=== PATIENT | female | born 1995 | race African-American/Black ===

== ENCOUNTER 2016-04-22 18:55 | Emergency (ER) | payer OTHER ==
[~2016-04-22] VITALS: Ht 165.1 cm; Wt 81.6 kg
[~2016-04-22 18:55] MED LIST: CYCL10TA2 PO; FAMO-63 PO; ONDA4TAB7 PO; VENTOLIN HFA18 GM INH
[2016-04-22] MEDS ORDERED: ACETAMINOPHEN 325 MG TABLET. PO ONE (19:30)
[2016-04-22] MEDS ORDERED: IV NORMAL SALINE 1000ML BAG 1,000 ML IV ONE ×2 (19:30→21:00)
[2016-04-22 19:34] LABS: NEG OBC UR NEG; POS OBC UR POS
[2016-04-22 19:38] LABS: BILIRUBIN,URINE SMALL (NEG); GLUCOSE,URINE NEGATIVE (NEG); NITRITE,URINE NEGATIVE (NEG)
[2016-04-22 19:47] LABS: BACTERIA,URINE FEW /HPF (0-FEW); PROTEIN,URINE NEGATIVE (NEG-TRACE); RBC,URINE 0 /HPF (0-2)
[2016-04-22 19:48] LABS: SQUAMOUS EPITHELIAL CELL,UR MOD /LPF
[2016-04-22 20:09] LABS: BASO % 1 % (0-3); EOS % 1 % (0-3); HEMATOCRIT 37.5 % (36.0-47.0); HEMOGLOBIN 12.3 g/dL (12.0-15.5); LYMPH # 1.3 x10^3/uL (1.0-4.8); LYMPH % 26 % (24-48); MEAN CORPUSCULAR HEMOGLOBIN 28 pg (25-35); MEAN CORPUSCULAR HGB CONC 33 g/dL (31-37); MEAN CORPUSCULAR VOLUME 86 fL (79-100); MONO % 9 % (0-9); NEUT % 63 % (31-73); PLATELET COUNT 195 x10^3/uL (140-400); RED BLOOD COUNT 4.35 x10^6/uL (3.50-5.40); RED CELL DISTRIBUTION WIDTH 15.7 % (11.5-14.5); WHITE BLOOD COUNT 4.9 x10^3/uL (4.0-11.0)
[2016-04-22 20:27] LABS: CALCIUM 8.4 mg/dL (8.5-10.1); GFR 83.1; POTASSIUM 3.5 mmol/L (3.5-5.1)
[2016-04-22] MEDS ORDERED: CONTRAST GIVEN MC PRN (20:30)
[2016-04-22] MEDS ORDERED: IOHEXOL 300 MG/ML 100ML VIAL. IV ONE (20:30)
--- NOTE | 2016-04-22 21:32 | PHYS DOC ---
Past Medical History Past Medical History: Asthma Past Surgical History: No Surgical History Additional Past Surgical Histo: Tumor removed from posterior R)ear. Alcohol Use: None Drug Use: None Adult General Chief Complaint Chief Complaint: HEADACHE HPI HPI 21-year-old female presenting the emergency department today with a fever and headache since 15 April. She has been taking acetaminophen as needed for pain. Her headache is sharp frontal moderate nonradiating and not associated with neck stiffness (I clarified with the patient after reading the nursing notes. She states "her neck has not been stiff". She denies abdominal pain nausea vomiting chest pain shortness of breath. She denies cough congestion. She denies vision changes. She endorses dysuria with mild polyuria. She denies diarrhea. Review of Systems Review of Systems ROS negative for chest pain shortness of breath cough she denies runny nose polyuria dysuria. All other review of systems is negative unless otherwise noted in history of present illness. Current Medications Current Medications Current Medications Medications (Trade) Dose Ordered Sig/Josseline Start Time Stop Time Status Last Admin Dose Admin Acetaminophen (Tylenol) 650 mg 1X ONCE 04/22/16 19:30 04/22/16 19:31 DC 04/22/16 19:39 650 MG Info 1 each 1 each PRN DAILY PRN 04/22/16 20:30 04/23/16 01:11 DC Iohexol (Omnipaque 300 Mg/ml) 100 ml 1X ONCE 04/22/16 20:30 04/22/16 20:31 DC 04/22/16 21:02 70 ML Sodium Chloride (Iv Sodium Chloride 0.9% 1000ml Bag) 1,000 ml @ 1,000 mls/hr 1X ONCE 04/22/16 21:00 04/22/16 21:59 DC 04/22/16 22:22 1,000 MLS/HR Sodium Chloride (NORMAL SALINE FLUSH for STERILE FIELD) 10 ml STK-MED ONCE 04/22/16 22:57 04/22/16 22:58 DC Allergies Allergies Allergies Coded Allergies Type Severity Reaction Last Updated Verified venom-honey bee Allergy Severe Throat swells-Anaphalysis 01/21/15 Yes Physical Exam Physical Exam Constitutional: Well developed, well nourished, no acute distress, non-toxic appearance. HENT: Normocephalic, atraumatic, bilateral external ears normal, oropharynx moist, no oral exudates, nose normal. Eyes: PERRLA, EOMI, conjunctiva normal, no discharge. [] Neck: Normal range of motion, no tenderness, supple, no stridor. Negative Brudzinski sign. Negative Kernig sign. Cardiovascular:Heart rate regular rhythm, no murmur [] Lungs & Thorax: Bilateral breath sounds clear to auscultation Abdomen: Bowel sounds normal, soft, no tenderness, no masses, no pulsatile masses. [] Skin: Warm, dry, no erythema, no rash. Back: No tenderness, no CVA tenderness. [] Extremities: No tenderness, no cyanosis, no clubbing, ROM intact, no edema. No petechial rash. Neurologic: Alert and oriented X 3, normal motor function, normal sensory function, no focal deficits noted. Psychologic: Affect normal, judgement normal, mood normal. [] Current Patient Data Vital Signs Vital Signs Date Time Temp Pulse Resp B/P Pulse Ox O2 Delivery O2 Flow Rate FiO2 04/23/16 01:00 99.8 99.8 04/23/16 00:30 87 98/52 98 Room Air 04/22/16 19:04 15 Lab Values Laboratory Tests Test 04/22/16 19:15 04/22/16 19:23 04/22/16 20:00 Group A Streptococcus Rapid Negative (NEGATIVE) Urine Collection Type Unknown Urine Color Sofía Urine Clarity Cloudy Urine pH 6.0 Urine Specific Rogers >=1.030 Urine Protein Negativemg/dL (NEG-TRACE) Urine Glucose (UA) Negativemg/dL (NEG) Urine Ketones (Stick) Tracemg/dL (NEG) Urine Blood Negative (NEG) Urine Nitrite Negative (NEG) Urine Bilirubin Small (NEG) Urine Urobilinogen Dipstick 1.0mg/dL (0.2 mg/dL) Urine Leukocyte Esterase Trace (NEG) Urine RBC 0/HPF (0-2) Urine WBC 1-4/HPF (0-4) Urine Squamous Epithelial Cells Mod/LPF Urine Bacteria Few/HPF (0-FEW) Urine Mucus Marked/LPF Urine Test Negative (NEG) White Blood Count 4.9x10^3/uL (4.0-11.0) Red Blood Count 4.35x10^6/uL (3.50-5.40) Hemoglobin 12.3g/dL (12.0-15.5) Hematocrit 37.5% (36.0-47.0) Mean Corpuscular Volume 86fL (79-100) Mean Corpuscular Hemoglobin 28pg (25-35) Mean Corpuscular Hemoglobin Concent 33g/dL (31-37) Red Cell Distribution Width 15.7% (11.5-14.5) H Platelet Count 195x10^3/uL (140-400) Neutrophils (%) (Auto) 63% (31-73) Lymphocytes (%) (Auto) 26% (24-48) Monocytes (%) (Auto) 9% (0-9) Eosinophils (%) (Auto) 1% (0-3) Basophils (%) (Auto) 1% (0-3) Neutrophils # (Auto) 3.1x10^3uL (1.8-7.7) Lymphocytes # (Auto) 1.3x10^3/uL (1.0-4.8) Monocytes # (Auto) 0.4x10^3/uL (0.0-1.1) Eosinophils # (Auto) 0.1x10^3/uL (0.0-0.7) Basophils # (Auto) 0.0x10^3/uL (0.0-0.2) Sodium Level 141mmol/L (136-145) Potassium Level 3.5mmol/L (3.5-5.1) Chloride Level 105mmol/L (98-107) Carbon Dioxide Level 26mmol/L (21-32) Anion Gap 10 (6-14) Blood Urea Nitrogen 15mg/dL (7-20) Creatinine 1.0mg/dL (0.6-1.0) Estimated GFR (Cockcroft-Gault) 83.1 Glucose Level 110mg/dL (70-99) H Calcium Level 8.4mg/dL (8.5-10.1) L Laboratory Tests 04/22/16 20:00 Laboratory Tests 04/22/16 20:00 EKG EKG [] Radiology/Procedures Radiology/Procedures [] Course & Med Decision Making Course & Med Decision Making Pertinent Labs and Imaging studies reviewed. (See chart for details) 21-year-old female presenting to the emergency department with headache and fever. No evidence of strep throat. Unable to find any other sources of infection. Urinalysis not entirely suggestive of infection. Vital signs showed tachycardia with fever. Patient was well-appearing in the examination room and resting comfortably. She did not have any neck stiffness on my evaluation she was able to touch her chin to her chest into her shoulders bilaterally without any difficulty. Negative Kernig sign and Babinski sign. Given the lack of source of infection we pursued evaluating her for possible viral meningitis. Head CT NEG for acute pathology. Lumbar puncture attempted approximately 4 attempts. Unfortunately were unable to obtain CSF. I explained to the patient the options of medical therapy at this point which included admission to the hospital, IV antibiotics, lumbar puncture under fluoroscopy or discharge. After long discussion about risks and benefits. Given the patient's clinical manifestations and physical exam and workup thus far we collectively decided that we would discharge the patient with the diagnosis of presumptive viral meningitis. The patient was nontoxic appearance. She had no petechiae in her upper or lower extremities. She did not have neck stiffness when I evaluated her. She was then subsequent discharged home to follow up with her primary care physician. I also explained to her that if she at any point changed her mind or felt worse she can otherwise come back for IV antibiotics and admission for fluoroscopic lumbar puncture. Dragon Disclaimer Dragon Disclaimer This electronic medical record was generated, in whole or in part, using a voice recognition dictation system. Departure Departure Impression: Primary Impression: Headache Additional Impression: Fever Disposition: 01 HOME, SELF-CARE Condition: STABLE Referrals: NO PCP (PCP) JUDITH QUAN MD Patient Instructions: General Headache Without Cause Additional Instructions: Thank you for allowing us to participate in your care today. Followup with your primary care physician in 3 days if your symptoms do not improve. If you do not have a primary care provider you can ask for a list of our primary care providers. Return to the emergency department you have any new or concerning findings. This should be evaluated by the primary care physician and any necessary consulting services for continued management within a few days after discharge. Return to emergency room if you have any new or concerning symptoms including but not limited to fever, chills, nausea, vomiting, intractable pain, any new rashes, chest pain, shortness of air, uncontrolled bleeding, difficulty breathing, and/or vision loss. You may have been prescribed medication that can change in your level of thinking and ability to operate machinery. These medications include hydrocodone and Ativan. Also, Benadryl has been known to do this as well. Be sure to check with your pharmacist and ask if the medications you've prescribed can affect your level of consciousness. I recommend not operating heavy machinery or driving while on medication such as these. Scripts Hydrocodone Bit/Acetaminophen (Hydrocodone-Apap 5-325 )1 Each Tablet1 Tab PO PRN Q6HRS PRN PAIN #15 TAB Be careful as this medication may cause you to be drowsy or tired. Do not drive on this medication. Prov:LEXY HUNTER MD 04/23/16 Lumbar Puncture Lumbar Indication: Suspected meningitis Consent: Consent was obtained Procedure: The patient was placed in the upright position and the appropriate landmarks were identified. The area was prepped and draped in the usual sterile fashion. Anesthesia was obtained using 1% lidocaine. A spinal needle was inserted at the L4/L5. Unfortunately CSF was unable to be obtained after approximately 30 minutes of attempted lumbar puncture. A sterile dressing was placed over the site and the patient was placed in the supine position. The patient tolerated the procedure well. Complications: Unable to obtain CSF. Problem Qualifiers LEXY HUNTER MD Apr 22, 2016 21:32
--- NOTE | 2016-04-22 21:41 | RAD ---
PROCEDURE CT head with and without contrast. HISTORY Headache and fever. Concern for sinusitis or potentially intracranial abscess. TECHNIQUE Noncontrast CT head was obtained. Post-contrast imaging was performed after 70 milliliters of intravenous Omnipaque 300 was injected. Coronal reformats are provided. One or more of the following individualized dose reduction techniques were utilized for this exam: 1. Automated exposure control. 2. Adjustment of the mA and/or kV according to patient's size. 3. Use of iterative reconstruction technique. COMPARISON None. FINDINGS The ventricles are normal in size and configuration. There is no intracranial hemorrhage or extra-axial fluid collection. There is no mass effect or midline shift. Malagon-white differentiation is preserved. There is no depressed skull fracture. There is minimal right maxillary mucosal thickening. The included paranasal sinuses and mastoid air cells otherwise are clear. There is no pathologic enhancement. CT, even with and without contrast, is not sensitive for dural enhancement or subtle findings of intracranial infection. Consider lumbar puncture. If further imaging is warranted, consider MRI brain with and without contrast. IMPRESSION No acute intracranial findings. There is minimal left maxillary sinus mucosal thickening. Electronically signed by: Jean Claude Hernández MD (Apr 22, 2016 21:40:06)
[2016-04-22] MEDS ORDERED: 0.9 % SOD CHL for STERILE FIELD 10 ML DISP.SYRIN. ONE (22:57)
[2016-04-23 00:30] VITALS: BP 98/52
[2016-04-23] MEDS ORDERED: HYDR-2666 PO (00:55)
[2016-04-23 07:34] LABS: NEGATIVE OBC STREP NEG; POSITIVE OBC STREP POS
--- NOTE | 2016-04-23 07:51 | RAD ---
Indication: Fever for 2 days. Technique: Upright portable chest radiograph was obtained. No comparison is available. Findings: The lungs are clear. The cardiopulmonary silhouette is within normal limits. The bony structures are intact. Impression: No active pulmonary disease.
== END 2016-04-23 01:11 | disposition home or self-care (01) ==
LOC: ER 18:55
DX: R51 Headache (principal); R50.9 Fever, unspecified; R30.0 Dysuria; J45.909 Unspecified asthma, uncomplicated; Z91.038 Other insect allergy status
CPT/HCPCS: 36415; 62272; 70470; 71010; 80048; 81001; 81025; 85027; 87070; 87086; 87880; 96360; 96361; 99285; J7030; Q9967

== ENCOUNTER 2016-09-30 12:54 | Emergency (ER) | payer OTHER ==
[~2016-09-30] VITALS: Ht 165.1 cm; Wt 81.6 kg
[~2016-09-30 12:54] MED LIST changes: +HYDR-2758 PO
[2016-09-30 13:56] VITALS: BP 121/72
--- NOTE | 2016-09-30 14:12 | PHYS DOC ---
Past Medical History Past Medical History: Asthma Past Surgical History: No Surgical History Additional Past Surgical Histo: Tumor removed from posterior R)ear. Alcohol Use: None Drug Use: None Adult General Chief Complaint Chief Complaint: SORE THROAT HPI HPI Patient is a 21 year old female in the emergency department stating that she's a sore throat for the last 2 days. She states she just started as a tingling- type sore throat. She states that it is hard to swallow and difficulty to talk. She states she's had a fever up to 102. She denies any cough or congestion. She states that she either usually has tonsillitis or strep throat. Patient is unsure when the last time she was on antibiotics. She denies any further symptoms. She states that she did not take any Tylenol or ibuprofen when she was running a fever. Current time she's afebrile Review of Systems Review of Systems Constitutional: Denies fever or chills [] Eyes: Denies change in visual acuity, redness, or eye pain [] HENT: Denies nasal congestion C/o sore throat [] Respiratory: Denies cough or shortness of breath [] Cardiovascular: No additional information not addressed in HPI [] GI: Denies abdominal pain, nausea, vomiting, bloody stools or diarrhea [] : Denies dysuria or hematuria [] Musculoskeletal: Denies back pain or joint pain [] Integument: Denies rash or skin lesions [] Neurologic: Denies headache, focal weakness or sensory changes [] Endocrine: Denies polyuria or polydipsia [] Allergies Allergies Allergies Coded Allergies Type Severity Reaction Last Updated Verified venom-honey bee Allergy Severe Throat swells-Anaphalysis 01/21/15 Yes Physical Exam Physical Exam Constitutional: Well developed, well nourished, no acute distress, non-toxic appearance. [] HENT: Normocephalic, atraumatic, bilateral external ears normal, oropharynx moist, no oral exudates, nose normal. Bilateral tympanic membranes appear to be normal. Throat with redness noted no exudate noted no erythematous noted. Patient was noted to have left anterior cervical adenopathy. Eyes: PERRLA, EOMI, conjunctiva normal, no discharge. [] Neck: Normal range of motion, no tenderness, supple, no stridor. [] Cardiovascular:Heart rate regular rhythm, no murmur [] Lungs & Thorax: Bilateral breath sounds clear to auscultation [] Skin: Warm, dry, no erythema, no rash. [] Back: No tenderness Extremities: No tenderness, no cyanosis, no clubbing, ROM intact, no edema. [] Neurologic: Alert and oriented X 3, normal motor function, normal sensory function, no focal deficits noted. [] Psychologic: Affect normal, judgement normal, mood normal. [] Current Patient Data Vital Signs Vital Signs Date Time Temp Pulse Resp B/P (MAP) Pulse Ox O2 Delivery O2 Flow Rate FiO2 09/30/16 13:56 98.4 86 20 98 Room Air 98.4 EKG EKG [] Radiology/Procedures Radiology/Procedures [] Course & Med Decision Making Course & Med Decision Making Pertinent Labs and Imaging studies reviewed. (See chart for details) Rapid strep appears to be negative. Patient will be discharged home in stable condition with recommendations for warm salt water gargles 4 times a day. Also recommended cough drops and throat lozenges to help soothe the throat. Plenty fluids such as water Gatorade and propel. Patient will be discharged home in stable condition signs symptoms to return back to emergency department been provided. Patient agrees with discharge instructions treatment regimens and follow-up recommendations. [] Dragon Disclaimer Dragon Disclaimer This electronic medical record was generated, in whole or in part, using a voice recognition dictation system. Departure Departure Impression: Primary Impression: Pharyngitis Disposition: HOME, SELF-CARE Condition: STABLE Referrals: NO PCP (PCP) Patient Instructions: Viral and Bacterial Pharyngitis, [id number] Additional Instructions: You have been evaluated for sore throat. The rapid strep was negative. Throat culture will be back in approximately 2-3 days. You'll be notified if it is positive. Activity as tolerated Cough drops or lozenges will soothe the throat. Drink plenty of fluids such as water Gatorade or propel. Warm salt water gargles 4 times a day. Follow-up to primary care physician in the next 3-5 days. Return back to emergency percent symptoms become worse. RAFAEL KURTZ APRN Sep 30, 2016 14:12
[2016-10-01 06:43] LABS: NEGATIVE OBC STREP NEG; POSITIVE OBC STREP POS
== END 2016-09-30 14:30 | disposition home or self-care (01) ==
LOC: ER 12:54
DX: J02.9 Acute pharyngitis, unspecified (principal); J45.909 Unspecified asthma, uncomplicated; Z91.030 Bee allergy status
CPT/HCPCS: 87070; 87880; 99283; 99284

== ENCOUNTER 2016-10-02 15:31 | Emergency (ER) | payer OTHER ==
[~2016-10-02] VITALS: Ht 165.1 cm; Wt 81.6 kg
[2016-10-02 15:40] VITALS: BP 136/83
[2016-10-02] MEDS ORDERED: PENICILLIN G BENZATHINE LA 2,400,000 UNIT/4 ML DISP.SYRIN. IM ONE (16:15)
--- NOTE | 2016-10-02 16:18 | PHYS DOC ---
Past Medical History Past Medical History: Asthma Past Surgical History: No Surgical History Additional Past Surgical Histo: Tumor removed from posterior R)ear. Alcohol Use: None Drug Use: None Adult General Chief Complaint Chief Complaint: SORE THROAT HPI HPI Patient is a 21 year old female presents to the emergency department eating that she has having a sore throat. She was seen here 2 days ago when had a negative rapid strep. Culture was still pending at this time. Patient has exudate noted on bilateral tonsils she states that she's been having fever chills. She's been taken Tylenol and ibuprofen for pain and discomfort. Review of Systems Review of Systems Constitutional: Denies fever or chills [] Eyes: Denies change in visual acuity, redness, or eye pain [] HENT: Denies nasal congestion C/o sore throat [] Respiratory: Denies cough or shortness of breath [] Cardiovascular: No additional information not addressed in HPI [] GI: Denies abdominal pain, nausea, vomiting, bloody stools or diarrhea [] : Denies dysuria or hematuria [] Musculoskeletal: Denies back pain or joint pain [] Integument: Denies rash or skin lesions [] Neurologic: Denies headache, focal weakness or sensory changes [] Endocrine: Denies polyuria or polydipsia [] Current Medications Current Medications Current Medications Medications (Trade) Dose Ordered Sig/Josseline Start Time Stop Time Status Last Admin Dose Admin Penicillin G Benzathine (Bicillin L-A) 2,400,000 unit 1X ONCE 10/02/16 16:15 10/02/16 16:16 Allergies Allergies Allergies Coded Allergies Type Severity Reaction Last Updated Verified venom-honey bee Allergy Severe Throat swells-Anaphalysis 01/21/15 Yes Physical Exam Physical Exam Constitutional: Well developed, well nourished, no acute distress, non-toxic appearance. [] HENT: Normocephalic, atraumatic, bilateral external ears normal, oropharynx moist, no oral exudates, nose normal. Throat with exudate noted to bilateral tonsil, no erythema, no redness. Eyes: PERRLA, EOMI, conjunctiva normal, no discharge. [] Neck: Normal range of motion, no tenderness, supple, no stridor. [] Cardiovascular:Heart rate regular rhythm, no murmur [] Lungs & Thorax: Bilateral breath sounds clear to auscultation [] Skin: Warm, dry, no erythema, no rash. [] Back: No tenderness Extremities: No tenderness, no cyanosis, no clubbing, ROM intact, no edema. [] Neurologic: Alert and oriented X 3, normal motor function, normal sensory function, no focal deficits noted. [] Psychologic: Affect normal, judgement normal, mood normal. [] Current Patient Data Vital Signs Vital Signs Date Time Temp Pulse Resp B/P (MAP) Pulse Ox O2 Delivery O2 Flow Rate FiO2 10/02/16 15:40 101.2 120 18 100 Room Air 101.2 EKG EKG [] Radiology/Procedures Radiology/Procedures [] Course & Med Decision Making Course & Med Decision Making Pertinent Labs and Imaging studies reviewed. (See chart for details) Rapid strep was positive. Patient is requesting a Bicillin injection. She was instructed to discard her toothbrush in the next 24 hours and obtain anyone. Encourage plenty of fluids Tylenol or ibuprofen for fever chills or generalized body aches and discomfort. Patient will be discharged home in stable condition signs and symptoms to return back to emergency department as been provided. Patient agrees with discharge instructions treatment regimens and follow-up recommendations. [] Dragon Disclaimer Dragon Disclaimer This electronic medical record was generated, in whole or in part, using a voice recognition dictation system. Departure Departure Impression: Primary Impression: Strep throat Disposition: 01 HOME, SELF-CARE Condition: STABLE Referrals: NO PCP (PCP) Patient Instructions: Strep Throat, [id number] Additional Instructions: Activity as tolerated. You've been provided with Bicillin here in the emergency department for strep throat. Drink plenty of fluids. Tylenol or ibuprofen for pain and discomfort. Discard her toothbrush in the next 24 hours and obtain a new one. Follow-up to primary care physician in 5-7 days if needed. Return back to emergency department sign symptoms of become worse. RAFAEL KURTZ APRN Oct 02, 2016 16:18
[2016-10-03 10:15] LABS: NEGATIVE OBC STREP NEG; POSITIVE OBC STREP POS
== END 2016-10-02 16:40 | disposition home or self-care (01) ==
LOC: ER 15:31
DX: J02.0 Streptococcal pharyngitis (principal); J45.909 Unspecified asthma, uncomplicated; Z91.030 Bee allergy status
CPT/HCPCS: 87880; 96372; 99283; J0561